=== PATIENT | male | born 1955 | race American Indian/Alaskan Native ===

== ENCOUNTER 2019-01-28 12:01 | Emergency (ER) | payer MEDICARE ==
[2019-01-28 12:23] VITALS: BP 195/104
--- NOTE | 2019-01-28 12:28 | Emergency Department Report ---
Blank Doc - Documentation Documentation: 63-year-old male that presents headache and dizziness. Hypertensive in triage at 207/114. This initial assessment/diagnostic orders/clinical plan/treatment(s) is/are subject to change based on patient's health status, clinical progression and re- assessment by fellow clinical providers in the ED. Further treatment and workup at subsequent clinical providers discretion. Patient/guardians urged not to elope from the ED as their condition may be serious if not clinically assessed and managed. Initial orders include: 1- Patient sent to [facility] for further evaluation and treatment 2- labs 3- EKG 4- CXR
== END 2019-01-28 12:45 | disposition left against medical advice (07) ==
LOC: ED 12:01
DX: R51 Headache (principal); R42 Dizziness and giddiness; Z53.21 Procedure and treatment not carried out due to patient leaving prior to being seen by health care provider

== ENCOUNTER 2019-09-11 22:41 | Emergency (ER) | payer MEDICARE ==
[2019-09-11] MEDS ORDERED: ASPIRIN 325 MG TAB PO ONE (22:58)
--- NOTE | 2019-09-11 23:28 | XRay Report ---
CHEST 1 VIEW INDICATION / CLINICAL INFORMATION: Chest Pain. COMPARISON: 09/29/2010 FINDINGS: SUPPORT DEVICES: None. HEART / MEDIASTINUM: Unchanged. Thoracic aortic stent graft is again noted. LUNGS / PLEURA: No significant pulmonary or pleural abnormality.. No pneumothorax. ADDITIONAL FINDINGS: No significant additional findings. IMPRESSION: 1. No acute findings. Signer Name: Power Mace MD Signed: 09/11/2019 11:23 PM Workstation Name: [id number]
[2019-09-12 00:05] LABS: Hematocrit 37.4 % (35.5-45.6); Hemoglobin 12.5 gm/dl (11.8-15.2); Mean Corpuscular HGB Conc 33 % (32-34); Mean Corpuscular Volume 88 fl (84-94); Platelet Count 240 K/mm3 (140-440); Red Blood Count 4.25 M/mm3 (3.65-5.03); Red Cell Distribution Width 13.8 % (13.2-15.2)
[2019-09-12 00:18] LABS: BUN/Creatinine Ratio 12; Blood Urea Nitrogen 17 mg/dL (9-20); Calcium 9.5 mg/dL (8.4-10.2); Hemolysis Index 0
--- NOTE | 2019-09-12 00:52 | Emergency Department Report ---
ED General Adult HPI - General Chief complaint: Chest Pain Stated complaint: BACK PAIN SORE THROAT CHEST PAIN PUI?: Yes Time Seen by Provider: 09/12/19 00:41 Source: patient Mode of arrival: Wheelchair Limitations: No Limitations - History of Present Illness Initial comments: Patient is a 64-year-old male that presents to the emergency room with complaints of right-sided chest pain, chronic lower back pain, right thigh pain and shortness of breath. Patient also states that he has had cough, vomiting and diarrhea. Patient states that he has chronic back pain that he was using oxycodone for but stopped getting a prescription for oxycodone he started using heroin. Patient states he used heroin yesterday. Patient states that his chest pain, shortness of breath, vomiting, diarrhea have been going on for 3 days. Patient is not sure if he has been exposed to COVID. Patient states that his chest pain is worse with deep breath and better with rest. Patient states his shortness of breath is better with rest and worse with exertion. Patient is unsure if he has a fever. -: Sudden Location: chest, back Severity scale (0 -10): 10 Quality: stabbing Consistency: constant Improves with: rest Worsens with: movement Associated Symptoms: chest pain, cough, nausea/vomiting, shortness of breath. denies: confusion, diaphoresis, fever/chills, headaches, loss of appetite, malaise, rash, seizure, syncope, weakness Treatments Prior to Arrival: none - Related Data Previous Rx's Medication Instructions Recorded Last Taken Type Azithromycin [Zithromax Tri-Xander] 500 mg PO DAILY 3 Days #3 tablet 09/12/19 Unknown Rx Ondansetron [Zofran Odt] 4 mg PO Q6HR PRN #20 tab.rapdis 09/12/19 Unknown Rx Allergies Allergy/AdvReac Type Severity Reaction Status Date / Time No Known Allergies Allergy Unverified 09/11/19 22:50 ED Review of Systems ROS: Stated complaint: BACK PAIN SORE THROAT CHEST PAIN Other details as noted in HPI Constitutional: denies: chills, fever Eyes: denies: eye pain, eye discharge, vision change ENT: denies: ear pain, throat pain Respiratory: cough, shortness of breath, SOB with exertion, SOB at rest. denies: wheezing Cardiovascular: chest pain, dyspnea on exertion. denies: palpitations Endocrine: no symptoms reported Gastrointestinal: nausea, vomiting, diarrhea. denies: abdominal pain Genitourinary: denies: urgency, dysuria Musculoskeletal: back pain. denies: joint swelling, arthralgia Skin: denies: rash, lesions Neurological: denies: headache, weakness, paresthesias Psychiatric: denies: anxiety, depression Hematological/Lymphatic: denies: easy bleeding, easy bruising ED Past Medical Hx - Past Medical History Previous Medical History?: Yes Hx Hypertension: Yes - Surgical History Past Surgical History?: Yes Hx Coronary Stent: Yes Additional Surgical History: 1 stents, left femur - Family History Family history: no significant - Social History Smoking Status: Current Every Day Smoker Substance Use Type: Alcohol, Heroin, Marijuana - Medications Home Medications: Home Medications Medication Instructions Recorded Confirmed Last Taken Type Azithromycin [Zithromax Tri-Xander] 500 mg PO DAILY 3 Days #3 tablet 09/12/19 Unknown Rx Ondansetron [Zofran Odt] 4 mg PO Q6HR PRN #20 tab.rapdis 09/12/19 Unknown Rx ED Physical Exam - General Limitations: No Limitations General appearance: alert, in no apparent distress - Head Head exam: Present: atraumatic, normocephalic - Eye Eye exam: Present: normal appearance - ENT ENT exam: Present: mucous membranes moist - Neck Neck exam: Present: normal inspection - Respiratory Respiratory exam: Present: normal lung sounds bilaterally, chest wall tenderness (Reproduces symptoms upon palpation.). Absent: respiratory distress, wheezes, rales - Cardiovascular Cardiovascular Exam: Present: regular rate, normal rhythm. Absent: systolic murmur, diastolic murmur, rubs, gallop - GI/Abdominal GI/Abdominal exam: Present: soft, normal bowel sounds. Absent: distended, ten derness, guarding - Rectal Rectal exam: Present: deferred - Extremities Exam Extremities exam: Present: normal inspection - Back Exam Back exam: Present: normal inspection - Neurological Exam Neurological exam: Present: alert, oriented X3 - Psychiatric Psychiatric exam: Present: normal affect, normal mood - Skin Skin exam: Present: warm, dry, intact, normal color. Absent: rash ED Course Vital Signs 09/11/19 09/12/19 09/12/19 22:53 01:32 02:37 Temperature 102.1 F H 99.1 F Pulse Rate 111 H 90 Respiratory 18 20 18 Rate Blood Pressure 139/77 Blood Pressure 119/65 [Left] O2 Sat by Pulse 97 98 99 Oximetry - Reevaluation(s) Reevaluation #1: Patient states he wants some medications for his chronic back pain. I informed the patient that chronic back pain is been managed by pain management or his primary care. Patient's vital signs have improved. Patient's fever responded well. Patient's heart rate has improved. Patient instructed to stop using heroin. I discussed all results and clinical findings with patient. I discussed plan of care with patient. Patient agrees with plan of care. Patient is stable for discharge. Patient will be discharged home. Patient given discharge instructions. Patient voiced understanding of discharge instructions. 09/12/19 02:48 ED Medical Decision Making - Lab Data Result diagrams: 09/11/19 23:11 09/11/19 23:11 - EKG Data -: EKG Interpreted by Me EKG shows normal: sinus rhythm, axis, intervals, QRS complexes, ST-T waves Rate: tachycardia - EKG Data Interpretation: [facility] - Radiology Data Radiology results: report reviewed, image reviewed interpreted by me: No acute findings on chest x-ray. CHEST 1 VIEW INDICATION / CLINICAL INFORMATION: Chest Pain. COMPARISON: 09/29/2010 FINDINGS: SUPPORT DEVICES: None. HEART / MEDIASTINUM: Unchanged. Thoracic aortic stent graft is again noted. LUNGS / PLEURA: No significant pulmonary or pleural abnormality.. No pneumothorax. ADDITIONAL FINDINGS: No significant additional findings. IMPRESSION: 1. No acute findings. - Medical Decision Making Patient is a 64-year-old male that presents emergency room with complaints of right-sided chest pain. Patient also complained of cough, shortness of breath, nausea vomiting, diarrhea. Patient was found to be febrile in triage. Patient's clinical findings are consistent with musculoskeletal chest pain and upper respiratory infection most likely consistent with COVID. Patient's chest x-ray was negative for acute findings. Patient's labs are essentially unremarkable. Patient was given a Z-Xander and Zofran. Patient instructed to self quarantine and follow-up with the local health department for further testing and evaluation. Patient stable for discharge. Patient given discharge instruct ions. With respect to the patient's back pain, the patient has a history of chronic back pain and used to take OxyContin however he recently turned to heroin use for management of his back pain. Patient requested pain medications for his chronic back pain however since this is not an acute finding and the patient has a long history of chronic back pain and heroin abuse, I elected to have the pat ient follow-up with pain management and his primary care for management of this pain. - Differential Diagnosis COVID, SOB, CP, n/v/d. cough. fever. pna Critical care attestation.: If time is entered above; I have spent that time in minutes in the direct care of this critically ill patient, excluding procedure time. ED Disposition Clinical Impression: Heroin abuse, COVID-19, Right-sided chest pain, Cough, SOB (shortness of breath) Chest pain Qualifiers: Chest pain type: unspecified Qualified Code(s): R07.9 - Chest pain, unspecified Diarrhea Qualifiers: Diarrhea type: unspecified type Qualified Code(s): R19.7 - Diarrhea, unspecified Nausea & vomiting Qualifiers: Vomiting type: unspecified Vomiting Intractability: non-intractable Qualified Code(s): R11.2 - Nausea with vomiting, unspecified Chronic back pain Qualifiers: Back pain location: low back pain Back pain laterality: bilateral Sciatica presence: with sciatica Sciatica laterality: sciatica of right side Qualified Code(s): M54.41 - Lumbago with sciatica, right side Disposition: TO HOME OR SELFCARE Is pt being admited?: No Does the pt Need Aspirin: No Condition: Stable Instructions: COVID-19, Chest Pain (ED), Narcotic Abuse (ED), Chronic Back Pain (ED) Additional Instructions: Patient to follow-up with primary care in 2 to 3 days. Patient to follow-up with health department and [employer] in 2 to 3 days. Patient to stop using heroin. Patient to follow-up with pain management for management of his chronic back pain. Patient to self quarantine for 14 days. Patient to avoid NSAIDs and ibuprofen. Patient to follow-up with the health department for further evaluation and COVID testing. Patient to rest. Patient to increase water. Patient to take Tylenol as needed for pain. Patient to take meds as directed. Patient to return to the ER if condition worsens, changes or new symptoms arise. Prescriptions: Azithromycin [Zithromax Tri-Xander] 500 mg PO DAILY 3 Days #3 tablet Ondansetron [Zofran Odt] 4 mg PO Q6HR PRN #20 tab.rapdis PRN Reason: Nausea And Vomiting Referrals: PRIMARY CARE, [Primary Care Provider] - 2-3 Days Time of Disposition: 02:48
[2019-09-12] MEDS ORDERED: SODIUM CHLORIDE 0.9% 1000 ML 1,000 ML IV ONE (00:59)
[2019-09-12] MEDS ORDERED: ACETAMINOPHEN 500 MG TAB PO ONE (01:00)
[2019-09-12 02:37] VITALS: BP 119/65
[2019-09-12 04:32] LABS: Band Neutrophils # (Manual) 1.1 K/mm3; Basophils % (Manual) 0 % (0.0-1.8); Eosinophils % (Manual) 0 % (0.0-4.3); Total Cells Counted 100
[2019-09-12 04:33] LABS: Ovalocytes Rare; Platelet Estimate Consistent w Auto
== END 2019-09-12 03:19 | disposition home or self-care (01) ==
LOC: ED 22:41
DX: U07.1 COVID-19 (principal); R07.89 Other chest pain; R06.02 Shortness of breath; R05 Cough; R19.7 Diarrhea, unspecified; R11.2 Nausea with vomiting, unspecified; M54.9 Dorsalgia, unspecified; G89.29 Other chronic pain; F11.90 Opioid use, unspecified, uncomplicated; I10 Essential (primary) hypertension; F17.200 Nicotine dependence, unspecified, uncomplicated; F12.90 Cannabis use, unspecified, uncomplicated; Z95.5 Presence of coronary angioplasty implant and graft; Z98.890 Other specified postprocedural states; Z79.899 Other long term (current) drug therapy
CPT/HCPCS: 36415; 71045; 80048; 84484; 85007; 85025; 93005; 96360; 99284; J7030